=== PATIENT | male | born 1960 | race Caucasian/White ===

== ENCOUNTER 2020-04-05 14:34 | Outpatient (CLI) | payer BC, SELFPAY ==
--- NOTE | ~2020-04-05 | CT_ITS ---
EXAMINATION: CT abdomen pelvis w con EXAM DATE: 04/05/2020 15:53 INDICATION: Prostate cancer. TECHNIQUE: Spiral CT of the abdomen and pelvis was performed following intravenous injection of 100 m L Omnipaque 350. Axial, coronal and sagittal images were reviewed. The dose-length product (DLP) fo r this examination was 348.13 mGy-cm. The exposure was tailored according to patient size (auto mA e xposure control), and iterative reconstruction (ASIR) was used as additional dose reduction technique . There is no prior study for comparison. FINDINGS: Cluster of splenic cystic lesions with calcification of the case, septations measuring abo ut 4.3 cm, benign finding. Could be chronic in a conical disease or other granulomatous process. The liver, pancreas, adrenal glands are unremarkable. Gallbladder is unremarkable. No biliary obstructi on. Portal and splenic veins are patent. Kidneys enhance symmetrically. There is no hydronephrosis . The prostate is unremarkable. The bladder is unremarkable. There is no retroperitoneal or pelvi c lymphadenopathy. There is mild scattered arteriosclerotic disease. The appendix is normal. There is extensive sigmoid, moderate descending colonic diverticulosis. Ther e is no adjacent inflammatory change to suggest diverticulitis. The stomach and small bowel are unrem arkable. There is expected amount of colonic stool. No free intraperitoneal gas. The heart is no rmal in size. There are no pericardial or pleural effusions. The lung bases are unremarkable. Ther e are no osteoblastic or osteolytic lesions identified. IMPRESSION: 1. No evidence of metastatic disease. 2. Benign cluster of splenic cystic lesions. 3. Colonic diverticulosis. Reviewed, dictated and finalized at location B. [facility]
[2020-04-05 16:12] LABS: Estimated Glomerular Filt Rate > 60
== END 2020-04-05 14:35 | disposition home or self-care (01) ==
PROVIDERS: PCP Family Medicine; Visit Provider Urology
DX: C61 Malignant neoplasm of prostate (principal); D73.9 Disease of spleen, unspecified; K57.90 Diverticulosis of intestine, part unspecified, without perforation or abscess without bleeding
CPT/HCPCS: 74177; Q9967